=== PATIENT | male | born 1990 | race Hispanic/Latino ===

== ENCOUNTER 2017-10-04 14:58 | Emergency (ER) | payer SELFPAY ==
--- NOTE | 2017-10-04 15:43 | ER ---
Nurse's Notes [facility] Name: Ricco Orozco Age: 27 yrs Sex: Male : 1990 Arrival Date: 10/04/2017 Time: 14:59 Bed 27 Private MD: Diagnosis: Plantar fasciitis - right foot Presentation: 10/04 15:14 Presenting complaint: Patient states: Right heel pain that is worse in the morning. aj Told to get clearance for work. Transition of care: patient was not received from another setting of care. Onset of symptoms was October 02, 2017. Risk Assessment: Do you want to hurt yourself or someone else? Patient reports no desire to harm self or others. Initial Sepsis Screen: Does the patient meet any 2 criteria? No. Patient's initial sepsis screen is negative. Does the patient have a suspected source of infection? No. Patient's initial sepsis screen is negative. Care prior to arrival: None. 15:14 Method Of Arrival: Ambulatory 15:14 Acuity: ONEIL 4 aj Triage Assessment: 15:15 General: Appears in no apparent distress. comfortable, Behavior is calm, cooperative, aj appropriate for age. Pain: Complains of pain in right foot. Neuro: Level of Consciousness is awake, alert, obeys commands, Oriented to person, place, time, situation, Appropriate for age. Respiratory: Airway is patent Respiratory effort is even, unlabored, Respiratory pattern is regular, symmetrical. Derm: Skin is intact, is healthy with good turgor, Skin is pink, warm \T\ dry. normal. Musculoskeletal: Reports pain in right foot. Historical: - Allergies: 15:15 No Known Allergies; aj - Home Meds: 15:15 None [Active]; aj - PMHx: 15:15 None; aj - PSHx: 15:15 None; aj - Immunization history:: Adult Immunizations up to date. - Social history:: Smoking status: Patient uses tobacco products, smokes one-half pack cigarettes per day. - Ebola Screening: : Patient negative for fever greater than or equal to 101.5 degrees Fahrenheit, and additional compatible Ebola Virus Disease symptoms Patient denies exposure to infectious person Patient denies travel to an Ebola-affected area in the 21 days before illness onset No symptoms or risks identified at this time. Screenin:20 Abuse screen: Denies threats or abuse. Denies injuries from another. Nutritional rv screening: No deficits noted. Tuberculosis screening: No symptoms or risk factors identified. Fall Risk None identified. Assessment: 15:19 General: Appears in no apparent distress. comfortable, Behavior is calm, cooperative. rv Pain: Complains of pain in medial aspect of right heel and instep of right foot. Neuro: Level of Consciousness is awake, alert, obeys commands, Oriented to person, place, time, situation. Cardiovascular: Capillary refill < 3 seconds. Respiratory: Airway is patent. GI: No signs and/or symptoms were reported involving the gastrointestinal system. : No signs and/or symptoms were reported regarding the genitourinary system. EENT: No signs and/or symptoms were reported regarding the EENT system. Derm: Skin is intact. Musculoskeletal: Reports pain in right foot. Vital Signs: 15:15 BP 124 / 85; Pulse 75; Resp 18; Temp 97.8; Pulse Ox 98% on R/A; Weight 68.04 kg; Height aj 5 ft. 10 in. (177.80 cm); 15:15 Body Mass Index 21.52 (68.04 kg, 177.80 cm) ED Course: 14:59 Patient arrived in ED. as 15:15 Triage completed. aj 15:15 Arm band placed on right wrist. Patient placed in an exam room. aj 15:21 Jose Haque NP is PHCP. pm1 15:21 Guillermo Henriquez MD is Attending Physician. pm1 15:21 Patient has correct armband on for positive identification. Bed in low position. Call rv light in reach. Side rails up X 1. Pulse ox on. NIBP on. 15:55 No provider procedures requiring assistance completed. Patient did not have IV access rv during this emergency room visit. Administered Medications: No medications were administered Outcome: 15:43 Discharge ordered by . pm1 15:55 Discharged to home ambulatory. rv 15:55 Condition: good 15:55 Discharge instructions given to patient, Instructed on discharge instructions, follow up and referral plans. 15:56 Patient left the ED. rv Signatures: Pamela Silverman RN RN Heather Mcgee as Jose Haque NP LINE SERVICE PERSON pm1 Shreyas Benitez RN RN rv
--- NOTE | 2017-10-04 15:44 | EDPHYS ---
Physician Documentation [facility] Name: Ricco Orozco Age: 27 yrs Sex: Male : 1990 Arrival Date: 10/04/2017 Time: 14:59 Bed 27 Private MD: ED Physician Guillermo Henriquez HPI: 10/04 15:40 This 27 yrs old Male presents to ER via Ambulatory with complaints of Foot pm1 Pain. 15:40 The patient presents with pain. The complaints affect the right foot. pm1 15:40 Context: The problem was sustained at an unknown site, resulted from an unknown cause, pm1 the patient can fully bear weight, the patient is able to ambulate, Problem is a result from a previous injury: No. Onset: The symptoms/episode began/occurred 1 month(s) ago. Modifying factors: The symptoms are alleviated by dorsiflexion of right toes. the symptoms are aggravated by plantar flexion of right toes and palpation to instep of right foot. Associated signs and symptoms: Pertinent negatives calf tenderness, fever, weakness. Treatment prior to arrival includes: he went to the medical clinic at his job and he was instructed to get a work clearance on an outpatient basis since this was not considered a work injury. The medical clinic's impression was plantar fasciitis. He attempted to go to a clinic but they were closed and presented here. Historical: - Allergies: 15:15 No Known Allergies; aj - Home Meds: 15:15 None [Active]; aj - PMHx: 15:15 None; aj - PSHx: 15:15 None; aj - Immunization history:: Adult Immunizations up to date. - Social history:: Smoking status: Patient uses tobacco products, smokes one-half pack cigarettes per day. - Ebola Screening: : Patient negative for fever greater than or equal to 101.5 degrees Fahrenheit, and additional compatible Ebola Virus Disease symptoms Patient denies exposure to infectious person Patient denies travel to an Ebola-affected area in the 21 days before illness onset No symptoms or risks identified at this time. ROS: 15:40 Constitutional: Negative for fever, chills, and weight loss, Neck: Negative for injury, pm1 pain, and swelling, Cardiovascular: Negative for chest pain, palpitations, and edema, Respiratory: Negative for shortness of breath, cough, wheezing, and pleuritic chest pain, Abdomen/GI: Negative for abdominal pain, nausea, vomiting, diarrhea, and constipation, Back: Negative for injury and pain. 15:40 Skin: Negative for injury, rash, and discoloration, Neuro: Negative for headache, weakness, numbness, tingling, and seizure. 15:40 MS/extremity: Positive for pain, of the instep of right foot. Exam: 15:40 Constitutional: This is a well developed, well nourished patient who is awake, alert, pm1 and in no acute distress. Head/Face: Normocephalic, atraumatic. Chest/axilla: Normal chest wall appearance and motion. Nontender with no deformity. No lesions are appreciated. Cardiovascular: Regular rate and rhythm with a normal S1 and S2. No gallops, murmurs, or rubs. Normal PMI, no JVD. No pulse deficits. Respiratory: Lungs have equal breath sounds bilaterally, clear to auscultation and percussion. No rales, rhonchi or wheezes noted. No increased work of breathing, no retractions or nasal flaring. Back: No spinal tenderness. No costovertebral tenderness. Full range of motion. Skin: Warm, dry with normal turgor. Normal color with no rashes, no lesions, and no evidence of cellulitis. 15:40 Musculoskeletal/extremity: Extremities: grossly normal except: noted in the instep of right foot just distal to heel: tenderness, Pain improved with passive dorsiflexion of right toes and pain increased with active plantar flexion of right toes, ROM: intact in all extremities, Circulation is intact in all extremities. Sensation intact. DVT Exam: No signs of deep vein thrombosis. 15:40 Neuro: Orientation: is normal, Motor: is normal. Vital Signs: 15:15 BP 124 / 85; Pulse 75; Resp 18; Temp 97.8; Pulse Ox 98% on R/A; Weight 68.04 kg; Height aj 5 ft. 10 in. (177.80 cm); 15:15 Body Mass Index 21.52 (68.04 kg, 177.80 cm) aj MDM: 15:32 Patient medically screened. pm1 15:40 Data reviewed: vital signs. Data interpreted: Pulse oximetry: on room air is 98 %. pm1 Interpretation: normal. 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 15:40 ED course: Patient refused pain medications in the ER and for prescription. Patient pm1 reports pain is present in the morning and improves throughout the day. Administered Medications: No medications were administered Disposition: 17:12 Co-signature as Attending Physician, Guillermo Henriquez MD I agree with the assessment and kdr plan of care. Disposition: 10/04/17 15:43 Discharged to Home. Impression: Plantar fasciitis - right foot. - Condition is Stable. - Discharge Instructions: Plantar Fasciitis. - Work release form, Medication Reconciliation Form, Thank You Letter form. - Follow up: Emergency Department; When: As needed; Reason: Worsening of condition. Follow up: Private Physician; When: 2 - 3 days; Reason: Recheck today's complaints, Continuance of care, Re-evaluation by your physician. - Problem is new. - Symptoms have improved. Signatures: Pamela Silverman, RN RN Guillermo Cardoza MD MD [facility] Jose Haque, ARIEL NOTCH GRINDER pm1 Shreyas Benitez RN RN rv Corrections: (The following items were deleted from the chart) 15:56 15:43 10/04/2017 15:43 Discharged to Home. Impression: Plantar fasciitis - right foot. rv Condition is Stable. Forms are Medication Reconciliation Form, Thank You Letter, Antibiotic Education, Prescription Opioid Use. Follow up: Emergency Department; When: As needed; Reason: Worsening of condition. Follow up: Private Physician; When: 2 - 3 days; Reason: Recheck today's complaints, Continuance of care, Re-evaluation by your physician. Problem is new. Symptoms have improved. pm1
== END 2017-10-04 15:56 | disposition home or self-care (01) ==
LOC: ER 14:58
DX: M72.2 Plantar fascial fibromatosis (principal); F17.210 Nicotine dependence, cigarettes, uncomplicated
CPT/HCPCS: 99283